=== PATIENT | male | born 1980 | race Caucasian/White ===

== ENCOUNTER 2017-01-30 19:35 | Inpatient (IN) | payer OTHER ==
[~2017-01-30] VITALS: Ht 185.4 cm; Wt 112.9 kg
--- NOTE | ~2017-01-30 | HP ---
Unit #: [id number] #: [id number] Patient: JUAN PABLO DOLL [id number] [facility] [address] [place] [address] [id number] I MR#: [id number] NAME: JUAN PABLO DOLL ROOM: P182 Age: 36 Sex: M Admission Date: 01/30/2017 : 1980 Attending Physician: Harish Rodriguez M.D. Admitting Physician: Harish Rodriguez M.D. Primary Care Physician: Generic Doctor Not In System HISTORY AND PHYSICAL HISTORY OF PRESENT ILLNESS Patient is a 36-year-old male admitted to [facility] on 01/30/2017 to detox from heroin and Xanax. PAST MEDICAL HISTORY 1. Withdrawal seizures. 2. Obesity. PAST SURGICAL HISTORY None noted. SOCIAL HISTORY He works at [employer]. He lives with his mother, uses marijuana and alcohol weekly and heroin and Xanax daily. FAMILY MEDICAL HISTORY Noncontributory. ALLERGIES No known drug allergies. CURRENT MEDICATIONS Patient is not on any home medications. REVIEW OF SYSTEMS CONSTITUTIONAL: No fever or chills. HEENT: Denies any sore throat, ear pain or runny nose. CARDIOVASCULAR: Denies chest pain, irregular heart rhythm or palpitations. CHEST: Denies shortness of breath or cough. No hemoptysis. GASTROINTESTINAL: Denies nausea, vomiting, diarrhea or chronic constipation. ENDOCRINE: Denies history of increased thirst or urination. No recent significant weight loss or gain. GENITOURINARY: Denies dysuria, frequency, or hematuria. SKIN: Denies any rashes. HEMATOLOGIC: Denies history of increased bleeding or bruising. MUSCULOSKELETAL: Denies any hot, swollen joints. No generalized muscle pain. NEUROLOGIC: Denies problems with vision or speech. No frequent, severe headaches. No numbness, tingling or weakness in any extremities. Denies loss of bladder or bowel control. PHYSICAL EXAM Unit #: [id number] #: [id number] Patient: JUAN PABLO DOLL GENERAL: He is awake, alert and oriented in no acute distress. VITAL SIGNS: Temperature 98.3, heart rate 101, respiration 18, blood pressure 143/100. HEIGHT: 6'1". WEIGHT: 249 pounds. SKIN: Warm and dry without rash or lesion. HEENT: Normocephalic. TMs not viewed. Oral and nasal passages clear. Conjunctivae clear. PERRLA. EOMs intact. NECK: Supple without lymphadenopathy or thyromegaly. HEART: Regular rate and rhythm without murmur. LUNGS: Clear. ABDOMEN: Soft, nontender. : Not done. EXTREMITIES: No evidence of cyanosis, clubbing or edema. Moves all without focal deficit. NEUROLOGICAL: Grossly within normal limits. Cranial Nerves: II: Visual chance are intact. III, IV AND : Extraocular movements are intact. Pupils are equal, round and reactive to light. V: Facial sensation is grossly normal. VII: Facial movements and expression are normal. VIII: Auditory acuity grossly intact. IX, X: Uvula is midline. Phonation is normal. XI: Patient shrugs shoulders and turns head normally. XII: Tongue protrudes in the midline. Sensory and Motor Function: Sensory and motor sensation is grossly normal. Motor: moves all extremities well. IMPRESSION 1. Psychiatric admission. 2. Drug abuse. 3. Withdrawal seizures. 4. Obesity. RECOMMENDATIONS Psychiatric per psychiatrist. MEDICAL: No contraindication to participate in facility activities. MEDICAL PROGNOSIS Good. MEDICAL CONDITION Stable. Dictated by... Farhan Tamayo/avinash TD: 02/01/2017 02:54 JOB #: [id number] Unit #: [id number] #: [id number] Patient: JUAN PABLO DOLL HISTORY AND PHYSICAL Page 1 of 1 X PARVIN CABELLO APRN HISTORY AND PHYSICAL
--- NOTE | ~2017-01-30 | PA ---
Unit #: [id number] #: [id number] Patient: JUAN PABLO DOLL [id number] [facility] [address] [place] [address] [id number] I MR#: [id number] NAME: JUAN PABLO DOLL ROOM: P182 Age: 36 Sex: M Admission Date: 01/30/2017 : 1980 Date of Assessment: 01/31/2017 Attending Physician: Harish Rodriguez M.D. Admitting Physician: Harish Rodriguez M.D. Primary Care Physician: Generic Doctor Not In System PSYCHIATRIC ASSESSMENT IDENTIFYING INFORMATION The patient is a 36-year-old white male, admitted to the [facility] unit with a history of Xanax and opioid abuse. He is also drinking beer. He was denying suicidal ideation at the time of admission. CHIEF COMPLAINT None given. INFORMANT(S) Chart, patient cannot be aroused for interview. HISTORY OF PRESENT ILLNESS This is a 36-year-old white male coming to this physician from previous admissions to this facility. He was last here in April of this year. The patient returns with a recent relapse including abuse of beer, Xanax and intravenous heroin. The patient reports no suicidal or homicidal ideation and denies any psychotic symptoms. He has been using up to 4 mg of Xanax on a daily basis as well as heroin which he states he snorts. For more complete history of present illness please refer to previous dictated notes. PAST PSYCHIATRIC HISTORY Reviewed no changes. PAST MEDICAL HISTORY Reviewed no changes. MEDICATIONS None at the time of admission. ALLERGIES None. FAMILY HISTORY Reviewed no changes. SOCIAL HISTORY Reviewed no changes. MENTAL STATUS EXAM At this time, reveals the patient to be a soundly sleeping white male. Multiple attempts to arouse the patient are unsuccessful. Unit #: [id number] #: [id number] Patient: JUAN PABLO DOLL ASSETS Motivation for change. LIABILITIES Lack of resources. DIAGNOSTIC IMPRESSION 1. Opioid use disorder. 2. Alcohol use disorder. 3. Sedative hypnotic use disorder. TREATMENT PLAN The patient remains hospitalized for safety and stabilization. A routine detoxification protocols (1)____ for both opioids and sedative hypnotics and beer had been ordered. The patient will participate in appropriate samson and milieu activities with an estimate length of stay in the hospital of three to five days. Dictated by... Debbie Maier TD: 01/31/2017 22:58 JOB #: [id number] PSYCHIATRIC ASSESSMENT Page 1 of 1 X Harish Rodriguez MD PSYCHIATRIC ASSESSMENT
--- NOTE | ~2017-01-30 | DS ---
Unit #: [id number] #: [id number] Patient: JUAN PABLO DOLL [id number] [facility] [address] [place] [address] [id number] MR#: [id number] NAME: JUAN PABLO DOLL ROOM: [facility] Age: 36 Sex: M Admission Date: 01/30/2017 : 1980 Discharge Date: 02/02/2017 Attending Physician: Harish Rodriguez M.D. Primary Care Physician: Generic Doctor Not In System DISCHARGE SUMMARY REASON FOR ADMISSION The patient is a 36-year-old white male admitted following a relapse of heroin use. HOSPITAL COURSE The patient was admitted to the [facility] unit and placed a routine detoxification protocol for opioids. He was also watched for any signs of sedative hypnotic withdrawal. His stay in the hospital was a brief and uneventful one. His detox went smoothly and by 02/02 the patient requested discharge citing a need to participate in his brother's wedding this week and discharge was ordered. FINAL DIAGNOSIS Sedative hypnotic use disorder, opioid use disorder. CONDITION AT DISCHARGE No psychotropic or other medications ordered at the time of discharge. Followup to take place through the auspices of community mental health resources. PROGNOSIS The patient's prognosis is considered fair. Dictated by... Harish Rodriguez M.D. CB/avinash TD: 02/03/2017 04:51 JOB #: [id number] Unit #: [id number] #: [id number] Patient: JUAN PABLO DOLL DISCHARGE SUMMARY Page 1 of 1 X Harish Rodriguez MD X DISCHARGE SUMMARY
--- NOTE | ~2017-01-30 | PN ---
Unit #: [id number] #: [id number] Patient: JUAN PABLO DOLL [id number] [facility] [address] [place] [address] [id number] I MR#: [id number] NAME: JUAN PABLO DOLL ROOM: 82 Age: 36 Sex: M Admission Date: 01/30/2017 : 1980 Attending Physician: Harish Rodriguez M.D. Admitting Physician: Harish Rodriguez M.D. Primary Care Physician: Generic Doctor Not In System [facility] PROGRESS NOTES DATE 02/01/2017 DISCUSSION The patient seems a bit brighter today. He reports that he was using about a gram of intravenous heroin as well as Xanax prior to coming to the hospital. The patient appears to be in bright spirits and exhibits little in the way of signs or symptoms of withdrawal. He should be ready for discharge within the next 1 to 2 days. Dictated by... Harish Rodriguez M.D. CB/cyrus TD: 02/01/2017 15:06 JOB #: [id number] [facility] PROGRESS NOTES Page 1 of 1 X Harish Rodriguez MD X PROGRESS NOTE
[~2017-01-30 19:35] MED LIST: NEURONTIN PO; NEURONTIN100 MG PO; NEURONTIN300 MG PO; PHENERGAN12.5 M1 PR; ZOFRAN ODT4 MG PO
[2017-01-31 12:58] LABS: BASOPHIL% 0.7 % (0-2.5); EOSINOPHIL# 0.2 X10e3 (0-0.7); HEMATOCRIT 42.1 % (38.0-50.0); HEMOGLOBIN 14.3 gm/dL (13.0-16.0); LYMPHOCYTE% 35.1 % (17.0-45.0); MEAN CORPUSCULAR HEMOGLOBIN 30.9 PG (28-34); MEAN CORPUSCULAR HGB CONC 33.9 g/dL (30-36); MEAN PLATELET VOLUME 8.8 FL (6.5-11.5); MONOCYTE# 0.6 X10e3 (0-1.0); MONOCYTE% 10.5 % (3.0-12.0); NEUTROPHIL# 2.9 X10e3 (1.5-7.1); NEUTROPHIL% 50.7 % (40-75); PLATELET COUNT 224 X10e3 (140-420); RED BLOOD COUNT 4.63 X10e (3.90-5.60); RED CELL DISTRIBUTION WIDTH 13.3 % (11.0-15.5); WHITE BLOOD COUNT 5.8 X10e3 (4.0-10.5)
[2017-01-31 13:08] LABS: ALBUMIN SERUM 3.6 g/dL (3.5-5.0); BILIRUBIN,TOTAL 0.4 mg/dL (0.2-2.0); BUN/CREATININE RATIO 12.5; CREATININE SERUM 0.8 mg/dL (0.6-1.4); POTASSIUM 4.1 mmol/L (3.5-5.1); PROTEIN TOTAL SERUM 6.1 g/dL (6.0-8.3)
[2017-01-31 13:20] LABS: DIFF IND NO
[2017-02-01 12:58] LABS: URINE APPEARANCE CLEAR; URINE BILIRUBIN NEG (NEG); URINE BLOOD NEG (NEG); URINE COLOR YELLOW; URINE GLUCOSE NEG (NEG); URINE KETONE NEG (NEG); URINE LEUKOCYTE ESTERASE NEG (NEG); URINE NITRATE NEG (NEG); URINE PROTEIN NEG (NEG); URINE SPECIFIC GRAVITY 1.013 (1.003-1.035); URINE UROBILINOGEN 0.2 MG/DL (NEG)
[2017-02-01 13:06] LABS: CULTURE INDICATED? NO
[2017-02-01 13:07] LABS: AMPHETAMINE NEG (NEG); BARBITURATES NEG (NEG); BENZODIAZEPINES POS (NEG); COCAINE NEG (NEG); MARIJUANA NEG (NEG); OPIATES POS (NEG); TRICYCLIC ANTIDEPRESSANTS NEG (NEG); U METHADONE NEG (NEG)
== END 2017-02-02 15:05 | DRG 897 ==
LOC: P1E 23:43
PROVIDERS: Specialist
PROC: HZ2ZZZZ Detoxification Services for Substance Abuse Treatment (ICD-10-PCS; principal; 2017-01-29)
DX: F11.10 Opioid abuse, uncomplicated (principal); F10.10 Alcohol abuse, uncomplicated; F13.10 Sedative, hypnotic or anxiolytic abuse, uncomplicated; E66.9 Obesity, unspecified
CPT/HCPCS: 80053; 80307; 81003; 85025